=== PATIENT | male | born 1980 | race Caucasian/White ===

== ENCOUNTER 2019-02-10 12:24 | Emergency (ER) | payer OTHER, SELFPAY ==
[2019-02-10 12:37] VITALS: BP 117/79; PULSE 65; RESP 15; TEMP 36.8; O2SAT 96; BMI 31.3
--- NOTE | 2019-02-10 12:51 | DI.RAD.S_ITS ---
PROCEDURE: XR KNEE RT 3V INDICATIONS: knee pain TECHNIQUE: 3 views of the knee were acquired. COMPARISON: None. FINDINGS: Bones: No fractures or dislocations. No suspicious bony lesions. Soft tissues: No joint effusion. No suspicious soft tissue calcifications. IMPRESSION: No acute osseous abnormality of the right knee. Dictated by: Jd Jorge M.D. on 02/10/2019 at 12:47 Approved by: Jd Jorge M.D. on 02/10/2019 at 12:48
--- NOTE | 2019-02-10 12:56 | ED_ITS ---
HPI - Extremity Injury (Lower) <FITZ Reynoso-BC - Last Filed: 02/10/19 14:08> General Chief Complaint: Extremity Injury, Lower Stated Complaint: Right knee pain Time Seen by Provider: 02/10/19 12:42 Source: patient Mode of arrival: ambulatory Limitations: no limitations History of Present Illness HPI Narrative: Patient Is a 38-year-old male nonsmoker with history of hypertension who presents with a chief complaint of right knee pain for the past week. He states he woke up and his right knee hurts when he squats down and feels like yes to veer to the side. Occasionally he feels clicking and popping. Denies any redness or swelling. He denies any previous injury to the knee other than a meniscus repair when he was 16 years old. He denies any overt injury twisting or popping. He is taking the occasional ibuprofen as well as ice for the pain. He has an appointment with his primary care provider and May. Related Data Home Medications Medication Instructions Recorded Confirmed lisinopril-hydrochlorothiazide 1 tab PO DAILY #0 09/15/16 02/10/19 gabapentin 02/10/19 Previous Rx's Medication Instructions Recorded hydroxyzine pamoate [Vistaril] 25 mg PO Q4HP PRN #60 cap 09/25/16 oxycodone 5 mg PO Q4HP PRN #90 tab 09/25/16 Xarelto 15 mg PO BID #42 tab 09/27/16 Allergies Allergy/AdvReac Type Severity Reaction Status Date / Time No Known Drug Allergies Allergy Verified 02/10/19 12:38 Review of Systems <GRACIELA Reynoso - Last Filed: 02/10/19 14:08> Review of Systems GENERAL: Denies chills, fatigue, malaise, fever, sweats. HEENT: Denies sinus pain, ear pain, sore throat, difficulty swallowing, dizziness. RESPIRATORY: Denies dyspnea, cough, wheezing, hemoptysis, sputum. CARDIOVASCULAR: Denies chest pain, palpitations, orthopnea, edema, GASTROINTESTINAL: Denies nausea, vomiting, abdominal pain, diarrhea, constipation, melena. : Denies dysuria, frequency, incontinence, hematuria, urinary retention. MUSCULOSKELETAL: See HPI SKIN: See HPI NEUROLOGIC: Denies weakness, headache, numbness, change in speech, confusion, seizures, incoordination. PSYCHIATRIC: No concerning psychosocial issues. 12 point review of systems is negative except for those stated above PFSH <GRACIELA Reynoso - Last Filed: 02/10/19 14:08> Medical History (Updated 02/10/19 @ 13:59 by GRACIELA Reynoso) Hypertension (Acute) Social History Smoking Status: Never smoker Social History Smoking Status: Never smoker Exam <GRACIELA Reynoso - Last Filed: 02/10/19 14:08> Narrative Exam Narrative: GENERAL: This is a well-nourished, well-developed patient, no acute distress HEAD: Atraumatic. Normocephalic. No temporal or scalp tenderness. EYES: Pupils equal round and reactive. Extraocular motions intact. No scleral icterus. No injection or drainage. ENT: Nose without bleeding, purulent drainage or septal hematoma. Throat without erythema, tonsillar hypertrophy or exudate. Uvula midline. Airway patent. NECK: Trachea midline. No JVD or lymphadenopathy. Supple, nontender, no mening eal signs. CARDIOVASCULAR: Regular rate and rhythm RESPIRATORY: No cough. No increased respiratory effort. Musk: Pain to palpation around right patella. Negative anterior and posterior drawer test right knee. Normal Varus and valgus test . Pain and clicking with John test. Positive pedal pulse right knee. No obvious swelling to knee. BACK: Nontender without deformity or crepitance. No flank tenderness. NEURO: AOx3. SKIN: No rash, erythema, ecchymosis noted right knee. Initial Vital Signs Initial Vital Signs: Vital Signs Temperature 98.2 F 02/10/19 12:37 Pulse Rate 65 02/10/19 12:37 Respiratory Rate 15 02/10/19 12:37 Blood Pressure 117/79 02/10/19 12:37 Pulse Oximetry 96 02/10/19 12:37 <Marifer Argueta DO - Last Filed: 02/13/19 12:54> Initial Vital Signs Initial Vital Signs: Vital Signs Temperature 98.2 F 02/10/19 12:37 Pulse Rate 65 02/10/19 12:37 Respiratory Rate 15 02/10/19 12:37 Blood Pressure 117/79 02/10/19 12:37 Pulse Oximetry 96 02/10/19 12:37 Course <GRACIELA Reynoso - Last Filed: 02/10/19 14:08> Orders Ordered: ED Orders 02/10/19 12:51 XR knee RT 3V Stat Vital Signs - 8 hr 02/10/19 12:37 Temperature 98.2 F Pulse Rate 65 Respiratory Rate 15 Blood Pressure 117/79 Pulse Oximetry 96 <Marifer Argueta DO - Last Filed: 02/13/19 12:54> Orders Ordered: ED Orders 02/10/19 12:51 XR knee RT 3V Stat Vital Signs - 8 hr 02/10/19 12:37 Temperature 98.2 F Pulse Rate 65 Respiratory Rate 15 Blood Pressure 117/79 Pulse Oximetry 96 MDM - Extremity Injury (Lower) <GRACIELA Reynoso - Last Filed: 02/10/19 14:08> Imaging Data knee xray : Radiologist's impression: [address] [address] XRay Report Signed Patient: Luis Rahman OMR#: [id number] : 1980Acct:[id number] Age/Sex: 38 / MDate of Service: 02/10/19 Loc: ED Accession Number: [id number] Procedure: XR knee RT 3V Ordering Provider: Josselyn Rodriguez PROCEDURE: XR KNEE RT 3V INDICATIONS: knee pain TECHNIQUE: 3 views of the knee were acquired. COMPARISON: None. FINDINGS: Bones: No fractures or dislocations. No suspicious bony lesions. Soft tissues: No joint effusion. No suspicious soft tissue calcifications. IMPRESSION: No acute osseous abnormality of the right knee. Dictated by: Jd Jorge M.D. on 02/10/2019 at 12:47 Approved by: Jd Jorge M.D. on 02/10/2019 at 12:48 [facility] Narrative Medical decision making narrative: The patient is a 38-year-old male who presents with a chief complaint right knee pain. He has pain and clicking on John test, making me suspicious an another minute this injury. He has a normal x-ray. He does not have any swelling or erythema indicative of a clot, especially given his instability and pain and clicking on exam. I discussed at length rest ice compression elevation as well as follow up with his primary care provider as he may benefit from further imaging on an outpatient basis for p hysical therapy. Discussed coming back to the emergency department for acute concerns such as chest pain shortness of breath or concern of DVT. Patient has no questions or concerns upon discharge. Discharge Plan Departure Patient Disposition: Home Clinical Impression: Acute knee pain Qualifiers: Laterality: right Qualified Code(s): M25.561 - Pain in right knee Discharge Date/Time: 02/10/19 14:11 Interventions: ED Discharge Assessment Last Done: 02/10/19 14:11 Instructions: How To Perform RICE (Rest, Ice, Compress, Elevate), DI for Knee Pain Activity Restrictions/Additional Instructions: Your x-ray showed no bony abnormality of the knee. Please continue rest ice compression elevation as well as [id number] pain medications as needed and able. Please follow up with primary care provider for new or worsening symptoms as already scheduled. Even though your x-ray was normal, you may benefit from further imaging and/or physical therapy. Please come back to the emergency department for any acute concerns such as shortness of breath or chest pain. Prescriptions: No Action lisinopril-hydrochlorothiazide 10 MG/12.5 MG tablet 1 tab PO DAILY Qty: 0 RF: 0 oxycodone 5 MG tablet 5 mg PO Q4HP PRNQty: 90 RF: 0 hydroxyzine pamoate [Vistaril] 25 MG capsule 25 mg PO Q4HP PRNQty: 60 RF: 1 Xarelto 15 MG tablet 15 mg PO BID Qty: 42 RF: 0 gabapentin 300 mg capsule RF: 0 Referrals: Elio Gray [Primary Care Provider] - <Marifer Argueta DO - Last Filed: 02/13/19 12:54> Cosign ED Attending Narcisa Attestation: I was immediately available in the department for consultation. Documentation has been reviewed. I agree with assessment and plan.
[2019-02-10 14:10] VITALS: BP 128/72; PULSE 64; RESP 14; O2SAT 99
== END 2019-02-10 14:11 | disposition home or self-care (01) ==
PROVIDERS: Emergency Provider Nurse Practitioner Family; PCP Family Medicine
DX: M25.561 Pain in right knee (principal); I10 Essential (primary) hypertension
CPT/HCPCS: 73562; 99282; 99283

== ENCOUNTER → 2019-02-26 18:41 | Outpatient (CLI) | payer OTHER, SELFPAY ==
--- NOTE | 2019-02-26 18:43 | DI.MRI.S_ITS ---
PROCEDURE: MR KNEE RT WO CON INDICATIONS: RIGHT KNEE PAIN TECHNIQUE: Noncontrast sagittal PD fast spin echo and T2 fast spin echo with fat saturation, sagittal 3-D FLASH with fat saturation; coronal T1 spin echo and PD fast spin echo with fat saturation, and axial PD fast spin echo with fat saturation through the knee. COMPARISON: [facility], CR, XR KNEE RT 3V, 02/10/2019, 12:59. FINDINGS: Image quality: Excellent. Menisci: Lateral meniscal tear involving the body, with abnormal signal extending to the superior and inferior articular surface. Medial meniscal tear also involving the body with truncation free margin and mild partial extrusion. Cruciate ligaments: The anterior and posterior cruciate ligaments appear intact. Medial structures: Adjacent soft tissue edema to the MCL may be reactive to medial meniscal pathology described above. No complete rupture. Semimembranosus and pes anserinus tendons appear intact although there is trace fluid adjacent to the pes anserinus tendon suggesting early or developing bursitis. Differential includes low-grade strain/tendinopathy. Lateral structures: The lateral collateral ligament, long and short heads of the biceps femoris tendon appear intact. The popliteus tendon appears normal; the popliteofibular ligament appears intact. The posterosuperior and anteroinferior popliteomeniscal fascicles appear intact. The arcuate and fabellofibular ligaments appear intact, on either side of the lateral inferior geniculate artery. Iliotibial band appears normal. Anterior structures: Mild thickening and internal signal change of the distal quadriceps tendon. There is also proximal patellar tendinopathy. Patellar alignment within normal limits. Hoffa's fat pad grossly unremarkable. Prepatellar and superficial infrapatellar subcutaneous edema/fluid. Bones and cartilage: No focal marrow contusion or discrete low signal fracture line. Within the medial compartment, diffuse partial-thickness loss the femoral and tibial articular cartilage. Within the lateral compartment, low-grade surface fraying of the central weightbearing tibial and femoral articular cartilage. Within the patellofemoral compartment, articular cartilage appears grossly intact Joint space: Small joint effusion. No definite formed Rader's cyst. No intra-articular loose body seen. IMPRESSION: Lateral meniscal tear involving the body. Medial meniscal tear also involving body and demonstrating partial extrusion. Distal quadriceps and proximal patellar tendinopathy. Prepatellar and superficial infrapatellar subcutaneous edema/fluid. Degenerative joint disease as above. Mild fluid or edema adjacent to the pes anserinus tendon suggesting low-grade/developing bursitis versus mild strain or tendinopathy, age unknown. Small joint effusion Dictated by: Jm Chavez M.D. on 03/01/2019 at 9:49 Approved by: Jm Chavez M.D. on 03/01/2019 at 9:57
== END ==
PROVIDERS: PCP Family Medicine; Visit Provider Family Medicine
DX: M25.561 Pain in right knee (principal); S83.281A Other tear of lateral meniscus, current injury, right knee, initial encounter; S83.241A Other tear of medial meniscus, current injury, right knee, initial encounter; M17.11 Unilateral primary osteoarthritis, right knee; M25.461 Effusion, right knee
CPT/HCPCS: 73721

== ENCOUNTER 2020-08-02 08:56 | Emergency (ER) | payer OTHER, SELFPAY ==
[2020-08-02 09:05] VITALS: BP 136/94; PULSE 75; RESP 18; TEMP 36.8; O2SAT 97; BMI 32.1
--- NOTE | 2020-08-02 09:31 | ED_ITS ---
HPI - Headache General Chief Complaint: Headache Stated Complaint: Migraine wont go away, diarrhea Time Seen by Provider: 08/02/20 09:07 Source: patient Mode of arrival: Ambulatory Limitations: no limitations History of Present Illness HPI Narrative: PATIENT IS A 40-year-old male with history of migraine. Presenting today with migraine. He said it started yesterday. Yesterday he says he has bit of a stomach bug he had some diarrhea and nausea no significant vomiting or fluid loss. His headache today however will not go away. He has tried ibuprofen which is what he normally does it is not helping. He has some light sensitivity no noise sensitivity. He has no fever or neck pain. Overall his stomach feels a little crampy but diarrhea has slowed. It is in the same location as his normal headaches. MD Complaint: headache Quality: aching Related Data Home Medications Medication Instructions Recorded Confirmed lisinopril-hydrochlorothiazide 1 tab PO DAILY #0 09/15/16 02/10/19 gabapentin 300 mg PO TID 08/02/20 08/02/20 Allergies Allergy/AdvReac Type Severity Reaction Status Date / Time No Known Drug Allergies Allergy Verified 08/02/20 09:11 Review of Systems Review of Systems Narrative: GENERAL: Denies chills, fatigue, malaise, fever, sweats, travel HEENT: Denies sinus pain, ear pain, sore throat, difficulty swallowing, neck pain RESPIRATORY: Denies dyspnea, cough, wheezing, hemoptysis, sputum. CARDIOVASCULAR: Denies chest pain, palpitations, orthopnea, edema GASTROINTESTINAL: See HPI : Denies dysuria, frequency, incontinence, hematuria, urinary retention, flank pain. MUSCULOSKELETAL: Denies weakness, joint pain, or bony pain SKIN: No rash, no erythema, no pruritus NEUROLOGIC: Headache Denies weakness, dizziness, numbness, change in speech, confusion PSYCHIATRIC: No concerning psychosocial issues. 12 point review of systems is negative except for those stated above and HPI Patient History Medical History Hypertension (Acute) Social History Smoking Status: Never smoker Smoking Status: Never smoker Substance Use Type: does not use Exam Initial Vital Signs Initial Vital Signs: Vital Signs Temperature 98.2 F 08/02/20 09:05 Pulse Rate 75 08/02/20 09:05 Respiratory Rate 18 08/02/20 09:05 Blood Pressure 136/94 H 08/02/20 09:05 Pulse Oximetry 97 08/02/20 09:05 GENERAL: Well-appearing, well-nourished and in no acute distress. HEENT: Head atraumatic,EOMI, pupils reactive, face symmetric, negative Kernig and Brudzinski CARDIOVASCULAR: Regular rate and rhythm without murmurs, rubs or gallops. RESPIRATORY: Breath sounds equal bilaterally, no wheezes rales or rhonchi. ABDOMEN: Soft, nontender. Normoactive bowel sounds all 4 quadrants. No guarding or rebound. EXTREMITIES: Normal range of motion, no clubbing or edema. Neurovascularly intact NEUROLOGICAL: Alert and oriented x4.Normal gait and speech. Cranial nerves II through XII grossly intact. SKIN: Warm, dry, no laceration, no petechiae, no rashes or lesions. Scores NIH Stroke Scale Level of Conciousness: Alert, keenly responsive Ask month/age: Answers both questions correctly. Open/close eyes, close hand: Performs both tasks correctly Best gaze horizontal: Normal Visual emmanuel: No visual loss Facial palsy: Normal symetrical movement Left arm drift: No drift for full 10 sec Right arm drift: No drift for full 10 sec Left leg drift: No drift for full 5 sec Right leg drift: No drift for full 5 sec Limb ataxia: Absent Sensory on face/arms/legs: Normal, no sensory loss Best language: No aphasia, normal Dysarthria: Normal Extinction or inattention: No abnormality Total NIH Stroke scale score: 0 Course Orders Ordered: ED Orders 08/02/20 10:10 Complete Blood Count AUTO DIFF Stat Comprehensive Metabolic Panel Stat Lipase Stat Discontinued Medications Diphenhydramine HCl (Benadryl) 25 mg IV NOW ONE Stop: 08/02/20 09:36 Last Admin: 08/02/20 10:00 Dose: 25 mg Documented by: JOVANY Sodium Chloride (Normal Saline 0.9%) 1,000 mls @ 1,000 mls/hr IV BOLUS ONE Stop: 08/02/20 10:34 Last Infusion: 08/02/20 11:05 Dose: 0 mls/hr Documented by: Admin: 08/02/20 10:00 Dose: 1,000 mls/hr Documented by: JOVANY Ketorolac Tromethamine (Toradol) 30 mg IV NOW ONE Stop: 08/02/20 09:57 Last Admin: 08/02/20 10:01 Dose: 30 mg Documented by: JOVANY Prochlorperazine (Compazine) 10 mg IV NOW ONE Stop: 08/02/20 09:36 Last Admin: 08/02/20 10:01 Dose: 10 mg Documented by: JOVANY Vital Signs Vital signs: Vital Signs - 8 hr 08/02/20 09:05 08/02/20 10:08 08/02/20 10:12 Temperature 98.2 F Pulse Rate 75 69 Respiratory Rate 18 Blood Pressure 136/94 H 130/90 Pulse Oximetry 97 94 08/02/20 10:30 08/02/20 11:00 08/02/20 11:08 Temperature Pulse Rate 60 55 L 57 L Respiratory Rate Blood Pressure 124/76 122/76 Pulse Oximetry 95 95 95 MDM - Headache Lab Data Attestation: I reviewed the patient's lab results. Result diagrams: 08/02/20 10:10 08/02/20 10:10 Labs: Lab Results 08/02/20 08/02/20 Range/Units 10:10 10:10 WBC 4.4 L (4.5-11.0) X10^3/uL RBC 4.95 (4.5-5.9) X10^6/uL Hgb 15.3 (13.5-17.5) g/dL Hct 43.6 (41-53) % MCV 88.2 (80-100) fL MCH 30.9 (26-34) PG MCHC 35.1 (30-36) % RDW 13.3 (11.6-14.8) % Plt Count 208 (150-400) X10^3/uL Neut % (Auto) 58.1 (50-75) % Lymph % (Auto) 32.3 (25-40) % [place] % (Auto) 5.8 (3-14) % Eos % (Auto) 3.0 (2-4) % Baso % (Auto) 0.8 (0-2) % Neut # (Auto) 2500 (0293-8788) /uL Lymph # (Auto) 1400 (9817-2929) /uL [place] # (Auto) 300 (0-900) /uL Eos # (Auto) 100 (0-450) /uL Baso # (Auto) 0 (0-100) /uL Sodium 138 (137-145) mmol/L Potassium 4.2 (3.4-5.1) mmol/L Chloride 102 (98-107) mmol/L Carbon Dioxide 28 (22-32) mmol/L BUN 13 (9-20) mg/dL Creatinine 1.03 (0.66-1.25) mg/dL Estimated GFR > 60.0 (>60) mL/min BUN/Creatinine Ratio 12.6 (6-22) Glucose 110 H (70-100) mg/dL Calcium 9.5 (8.4-10.2) mg/dL Total Bilirubin 0.7 (0.2-1.3) mg/dL AST 35 (17-59) IU/L ALT 59 H (<50) IU/L Alkaline Phosphatase 57 (38-126) U/L Total Protein 7.9 (6.3-8.2) g/dL Albumin 4.6 (3.5-5.0) g/dL Globulin 3.3 (1.7-4.1) g/dL Albumin/Globulin Ratio 1.4 (1.0-2.8) Lipase 77 (23-300) U/L MDM Narrative Medical decision making narrative: The patient overall starting to feel better but blood work is reassuring. This time no need for head CT this is a typical migraine which is improving migraine cocktail. Patient's pain completely improved with migraine cocktail overall feeling better. He is called for a ride home Benadryl has made him sleepy. Discharge Plan Departure Patient Disposition: Home Clinical Impression: Migraine Qualifiers: Migraine type: unspecified Status migrainosus presence: without status migrainosus Intractability: not intractable Qualified Code(s): G43.909 - Migraine, unspecified, not intractable, without status migrainosus Discharge Date/Time: 08/02/20 11:15 Instructions: DI for Migraine Activity Restrictions/Additional Instructions: *You have been diagnosed with migraine headache *What to do: Rest, increase fluid intake *Continue to take medications as directed Do not take ibuprofen until 6:00 p.m. tonight. May take Tylenol 650 mg every 4- 6 hours if needed *Follow up with your primary care provider in 2-3 days *Return to ER if you should have worsening headache fever neck pain weakness numbness or tingling or any new, worsening or concerning symptoms Prescriptions: No Action lisinopril-hydrochlorothiazide 10 MG/12.5 MG tablet 1 tab PO DAILY Qty: 0 RF: 0 gabapentin 300 mg capsule 300 mg PO TID RF: 0 Referrals: Maryann Costa DO [Primary Care Provider] -
[2020-08-02] MEDS: diphenhydrAMINE 50 MG/ML VIAL 25 MG IV (10:00)
[2020-08-02] MEDS: SODIUM CHLORIDE 0.9% 1,000 ML 1000 ML IV (10:00)
[2020-08-02] MEDS: KETOROLAC 60 MG/2 ML VIAL 30 MG IV (10:01)
[2020-08-02] MEDS: PROCHLORPERAZINE 10 MG/2 ML VIAL IV (10:01)
[2020-08-02 10:08] VITALS: PULSE 69; O2SAT 94
[2020-08-02 10:12] VITALS: BP 130/90
[2020-08-02 10:24] LABS: Add Manual Diff / Slide Review NO; Basophils Absolute Auto 0 /uL (0-100); Basophils Percent Auto 0.8 % (0-2); Eosinophils Absolute Auto 100 /uL (0-450); Hematocrit 43.6 % (41-53); Hemoglobin 15.3 g/dL (13.5-17.5); Lymphocytes Absolute Auto 1400 /uL (1100-4500); Lymphocytes Percent Auto 32.3 % (25-40); Mean Corpuscular HGB Conc 35.1 % (30-36); Mean Corpuscular Hemoglobin 30.9 PG (26-34); Mean Corpuscular Volume 88.2 fL (80-100); Monocytes Absolute Auto 300 /uL (0-900); Monocytes Percent Auto 5.8 % (3-14); Neutrophils Absolute Auto 2500 /uL (1500-7000); Neutrophils Percent Auto 58.1 % (50-75); Platelet Count 208 X10^3/uL (150-400); Red Blood Cell Count 4.95 X10^6/uL (4.5-5.9); Red Cell Distribution Width 13.3 % (11.6-14.8); White Blood Cell Count 4.4 X10^3/uL (4.5-11.0)
[2020-08-02 10:30] VITALS: BP 124/76; PULSE 60; O2SAT 95
[2020-08-02 10:34] LABS: Alanine Aminotransferase 59 IU/L (<50); Albumin 4.6 g/dL (3.5-5.0); Albumin Globulin Ratio 1.4 (1.0-2.8); Alkaline Phosphatase 57 U/L (38-126); Aspartate Aminotransferase 35 IU/L (17-59); BUN Creatinine Ratio 12.6 (6-22); Bilirubin Total 0.7 mg/dL (0.2-1.3); Blood Urea Nitrogen 13 mg/dL (9-20); Calcium 9.5 mg/dL (8.4-10.2); Carbon Dioxide 28 mmol/L (22-32); Chloride 102 mmol/L (98-107); Estimated Glomerular Filt Rate > 60.0 mL/min (>60); Globulin 3.3 g/dL (1.7-4.1); Glucose 110 mg/dL (70-100); HEMOLYSIS 16 (0-50); Lipase 77 U/L (23-300); Potassium 4.2 mmol/L (3.4-5.1); Sodium 138 mmol/L (137-145); Total Protein 7.9 g/dL (6.3-8.2)
[2020-08-02 11:00] VITALS: PULSE 55; O2SAT 95
[2020-08-02 11:08] VITALS: BP 122/76; PULSE 57; O2SAT 95
== END 2020-08-02 11:15 | disposition home or self-care (01) ==
PROVIDERS: Emergency Provider Emergency Medicine; PCP Family Medicine
DX: G43.909 Migraine, unspecified, not intractable, without status migrainosus (principal); R19.7 Diarrhea, unspecified; R11.0 Nausea
CPT/HCPCS: 36415; 80053; 83690; 85025; 96361; 96374; 96375; 99284; J0780; J1200; J1885

== ENCOUNTER → 2022-08-26 11:15 | Outpatient (CLI) | payer OTHER, SELFPAY ==
[2022-08-26 12:34] LABS: COVID19 -Nasal RAPID Negative (Negative)
== END ==
PROVIDERS: PCP Student in an Organized Health Care Education/Training Program; Visit Provider Surgery
DX: Z20.822 Contact with and (suspected) exposure to COVID-19 (principal); Z01.812 Encounter for preprocedural laboratory examination
CPT/HCPCS: 87635; C9803

== ENCOUNTER 2022-08-27 12:10 | Day surgery (SDC) | payer OTHER, SELFPAY ==
[2022-08-23 07:44] VITALS: BMI 34.7
[2022-08-27 12:57] VITALS: BP 130/86; PULSE 67; RESP 14; TEMP 36.3; O2SAT 95; BMI 34.7
[2022-08-27] MEDS: LACTATED RINGERS 1,000 ML 42 ML IV (13:30)
--- NOTE | 2022-08-27 13:36 | PM.PREOP ---
Pre-operative Note COVID-19 COVID-19 status: Negative Result date/Date tested (Pos, Neg/Pending): 08/26/22 Interval Note History & Physical reviewed/Exam performed by Physician: Yes Changes to H&P: No ASA Class (for procedural sedation): II
--- NOTE | 2022-08-27 13:57 | SUR.OPER ---
Supine on padded OR bed, head on pillow, arms secured on padded arm boards at <90 degrees abduction, legs uncrossed, safety belt at thigh, tape over blanket over lower legs.
[2022-08-27] MEDS: CEFAZOLIN 2 GM/100 ML PREMIX 100 ML IV (14:15)
[2022-08-27] MEDS: LIDOCAINE 2% W/EPI INJ 20 ML INJ (14:28)
[2022-08-27] MEDS: BUPIVACAINE 0.25% (PF) VIAL 30 ML INJ (14:28)
--- NOTE | 2022-08-27 15:25 | PM.OP.1 ---
Operative Date/Time/Diagnoses Date of procedure: 08/27/22 Time of procedure: 15:32 Pre-op diagnosis: Left inguinal hernia Post-op diagnosis: same Procedure & Clinicians Procedure: Open left inguinal hernia repair with mesh Same procedure as scheduled: Yes Surgeon: Yao Fitzgerald Operative Notes Procedure in detail: Preoperative antibiotic was administered. The patient was brought to the operating room and placed on the table in supine position general anesthesia was induced. The left groin was prepped and draped in the normal fashion and a time-out was performed. Roughly 10 mL of local anesthetic were injected into the skin and subcutaneous adipose tissue over the left groin. An 8 cm incision was made over the left inguinal canal. Dissection was carried down through the subcutaneous adipose tissue. We exposed the external oblique aponeurosis in the direction of the fibers. Additional local was injected deep to the aponeurosis. A 15 blade scalpel was used to devika the external oblique aponeurosis. Metzenbaum scissors were used to carefully open the aponeurosis in the direction of the fibers taking care not to injure the underlying ilioinguinal nerve. We completely exposed the inguinal canal. The cord was dissected free from the inguinal ligament and floor of the inguinal canal and the external oblique aponeurosis was dissected off of the internal oblique taking care not to injure the hypogastric nerve. We encircled the cord with a Lance drain for retraction. There was a large cord lipoma coming through the internal ring. This indicated a sliding hernia. We dissected the fatty cord lipoma off the cord structures and reduced it into the abdomen. Two 3-0 Vicryl sutures were placed laterally to tighten up the internal ring. We placed a polypropylene mesh over the inguinal canal floor. The mesh was secured with multiple interrupted 3-0 Prolene sutures to the pubic tubercle and shelving edge of the inguinal ligament as well as to the conjoint tendon medially. We overlapped the tails to recreate an internal ring and secured the medial tail to the inguinal ligament with additional sutures. We injected some more local into the fatty tissue in the inguinal canal and cord. Finally, we removed the Lance drain and closed the external oblique fascia with a running 3-0 Vicryl suture. Skin was closed with interrupted 3-0 Vicryl dermal sutures and a running 4 Monocryl subcuticular stitch. EBL 5 mL The patient was awakened and brought to recovery room. Post-operative Condition: stable Disposition: PACU
[2022-08-27 15:27] VITALS: BP 119/72; PULSE 69; RESP 12; TEMP 36.2; O2SAT 98
[2022-08-27 15:31] VITALS: BP 115/83; PULSE 65; RESP 16; O2SAT 97
[2022-08-27 15:36] VITALS: BP 126/81; PULSE 76; RESP 17; O2SAT 97
[2022-08-27 15:51] VITALS: BP 112/75; PULSE 70; RESP 12; TEMP 36.2; O2SAT 96
[2022-08-27 15:56] VITALS: BP 117/83; PULSE 53; RESP 17; TEMP 36.2; O2SAT 99
== END 2022-08-27 16:45 | disposition home or self-care (01) ==
PROVIDERS: PCP Student in an Organized Health Care Education/Training Program; Referring Provider Surgery; Visit Provider Surgery
PROC: (CPT 49505; principal; 2022-08-27 13:30)
DX: K40.90 Unilateral inguinal hernia, without obstruction or gangrene, not specified as recurrent (principal); I10 Essential (primary) hypertension; D17.6 Benign lipomatous neoplasm of spermatic cord
CPT/HCPCS: 49505; 82962; J0690; J1100; J1885; J2250; J2405; J2704; J3010

== ENCOUNTER 2022-09-07 08:24 | Emergency (ER) | payer OTHER, SELFPAY ==
[2022-09-07 08:41] VITALS: BP 135/87; PULSE 83; RESP 20; TEMP 35.8; O2SAT 98; BMI 33.2
[2022-09-07] MEDS: KETOROLAC 30 MG/ML VIAL IM (08:49)
--- NOTE | 2022-09-07 10:19 | PC.NURSE ---
pt had hernia surgery last friday (post op 12 days). started having back pain this week, unable to soak in hot tub due to incision. pt has history of spinal fusion and states it feels just like that did post operatively. pain is midline and most tender to palpation on spine. hurts to sit too long or lay down for too long. has used heat but had little relief from this.
--- NOTE | 2022-09-07 10:27 | ED_ITS ---
HPI - Back Pain/Injury General Chief Complaint: Back Pain/Injury Stated Complaint: LOWER BACK PAIN Time Seen by Provider: 09/07/22 10:25 Source: patient Mode of arrival: Ambulatory Limitations: no limitations History of Present Illness HPI Narrative: This is a 42-year-old male with history of spinal stenosis with lumbar surgery 7 years ago, patient had decompressive surgery bilaterally for nerve compression in both legs in the past, patient had a hernia repair on the 27 of July. Patient states for the past 2 or 3 days he had increasing low back pain over the lumbar region particularly the SI joints on both sides. It does not radiate down his legs. He has chronic neuropathy but has not appreciated significant increase. Has not had any bowel or bladder incontinence. He does not appreciate weakness he states being seated for prolonged periods or lying flat for prolonged periods and then trying to move significantly worsened since symptoms. Standing or walking is his main position of comfort. Patient has not had any fevers or chills. No chest pain or shortness of breath, no nausea or vomiting. He denies any urinary incontinence or bladder incontinence, no dysuria, urgency or frequency. She is been having bowel movements without issue. Patient has not had any saddle anesthesia. He takes gabapentin daily, lisinopril/HCTZ and Protonix. Did not take anything for pain at home yesterday or today. He had a dose of Toradol upon arrival which he states has been somewhat helpful. He states his incision appears to be healing well he saw General surgery yesterday and mentioned his symptoms they were not quite as intense as today. He follows with primary care at the [facility]. Related Data Home Medications Medication Instructions Recorded Confirmed lisinopril 10 1 tab PO DAILY ##0 09/15/16 09/06/22 mg-hydrochlorothiazide 12.5 mg tablet gabapentin 300 mg capsule 300 mg PO TID 08/02/20 09/06/22 pantoprazole 40 mg tablet,delayed 40 mg PO DAILY 08/27/22 09/06/22 release Previous Rx's Medication Instructions Recorded hydrocodone 5 mg-acetaminophen 325 1 tab PO Q8H PRN pain #10 tabs 08/27/22 mg tablet diazepam 10 mg tablet (Valium) 10 mg PO TID PRN muscle spasm #10 09/07/22 tabs prednisone 50 mg tablet 50 mg PO DAILY #5 tabs 09/07/22 tramadol 50 mg tablet 50 mg PO Q6H PRN pain #14 tabs 09/07/22 Allergies Allergy/AdvReac Type Severity Reaction Status Date / Time No Known Drug Allergies Allergy Verified 09/07/22 08:44 Review of Systems Review of Systems ROS Unobtainable: All systems reviewed & are unremarkable except as noted in HPI and below Patient History Medical History Back pain Hx pulmonary embolism (~2016) Hypertension Neuropathy Surgical History H/O spinal fusion Hx of knee surgery Social History household members: spouse Smoking Status: Never smoker alcohol intake: never Smoking Status: Never smoker alcohol intake frequency: other Substance Use Type: does not use Exam Narrative Exam Narrative: GENERAL: Alert and oriented x three, male in mild distress. HEENT: Head normocephalic, atraumatic, EOMI, pupils reactive, face symmetric, moist mucous membranes NECK: Supple, full range of motion CARDIOVASCULAR: Regular rate and rhythm without murmurs, rubs or gallops. RESPIRATORY: Breath sounds equal bilaterally, no wheezes rales or rhonchi. ABDOMEN: Soft, nontender. Normoactive bowel sounds all 4 quadrants. No guarding or rebound, rigidity, no mass. Patient's hernia incision appears clean dry and intact and appears to be healing well. No warmth, erythema or skin changes. : No CVA tenderness BACK: No cervical, thoracic or lumbar vertebral point tenderness. Patient has slightly decreased range of motion, patient has increased pain with flexion, extension rotation side bending. Most comfortable being upright.. Patient's gait is normal. Rectal exam is deferred. Muscle strength is 5/5 in lower extremities, DTRs are 2/4 and lower extremities. Dorsalis pedis and tibialis pulses are 2+ and lower extremities. Sensation is decreased bilaterally but equal in lower extremities. EXTREMITIES: Normal range of motion, no clubbing or edema. Neurovascularly intact NEUROLOGICAL: Cranial nerves II through XII grossly intact. Moving all extremities SKIN: Warm, dry, no petechiae, no rashes or lesions of the back. Initial Vital Signs Initial Vital Signs: Vital Signs Temperature 96.5 F L 09/07/22 08:41 Pulse Rate 83 09/07/22 08:41 Respiratory Rate 20 09/07/22 08:41 Blood Pressure 135/87 09/07/22 08:41 Pulse Oximetry 98 09/07/22 08:41 Oxygen Delivery Method 09/07/22 08:41 Course Orders Ordered: Discontinued Medications Diazepam (Diazepam 5 Mg Tablet) 10 mg PO NOW ONE Stop: 09/07/22 10:40 Last Admin: 09/07/22 10:45 Dose: 10 mg Documented By: EDINSON Ketorolac Tromethamine (Ketorolac 30 Mg/Ml Vial) 30 mg IM NOW ONE Stop: 09/07/22 08:46 Last Admin: 09/07/22 08:49 Dose: 30 mg Documented By: ANIBAL Oxycodone/Acetaminophen (Oxycodone/Acetaminophen 5/325 Tablet) 1 tab PO NOW ONE Stop: 09/07/22 10:40 Last Admin: 09/07/22 10:45 Dose: 1 tab Documented By: EDINSON Vital Signs Vital signs: Vital Signs - 8 hr 09/07/22 11:06 Pulse Rate 70 Respiratory Rate 18 Blood Pressure 131/86 Pulse Oximetry 97 Oxygen Delivery Method Room Air MDM - Back Pain/Injury MDM Narrative Medical decision making narrative: 42-year-old male presents with increased low back pain. History of spinal stenosis with surgery about 7 years ago, patient states he has chronic bilateral neuropathy actually from compression of the nerves in his legs and had decompression surgery remotely as well. He does not have any new red flag symptoms today. He had back surgery on the 8th he is had slowly increasing discomfort of last several days particularly with movement. No red flag symptoms and is otherwise well-appearing. Patient did not try anything for pain at home beyond his normal regimen of gabapentin. At this time I do not feel he warrants emergent MRI, x-ray and CT imaging would likely not give much information. Discussed return precautions plan for pain management some muscle relaxation and short course of prednisone and return precautions with plan to follow-up with primary care this week for recheck. Discharge Plan Departure Patient Disposition: Home Clinical Impression: Low back pain Instructions: DI for Low Back Pain Activity Restrictions/Additional Instructions: Please follow-up with your physician this week for recheck unless your symptoms have resolved. Take steroids once daily until gone. You may take muscle relaxer 1 tablet every 8 hours as needed. You may take ibuprofen 800 mg every 8 hours and/or Tylenol up to a 1000 mg every 6 hours as needed for pain. If in adequate you can take 1-2 tablets of tramadol every 6 hours. This medication can make you sleepy do not drive, perform hazardous activities or make any major decisions while taking it. This medication will make you constipated please take a stool softener once to twice daily until stools are soft and regular. Prescription sent to [facility] in [place]. Please return for fevers, rapidly worsening symptoms, new weakness, new or changing loss of sensation, loss of sensation in the groin area, loss of bowel or bladder control, persistent vomiting, inability to walk safely, inability to lift or move her leg or other new or concerning changes. Prescriptions: New prednisone 50 mg tablet 50 mg PO DAILY Qty: 5 0RF tramadol 50 mg tablet 50 mg PO Q6H PRN (Reason: pain) Qty: 14 0RF diazepam [Valium] 10 mg tablet 10 mg PO TID PRN (Reason: muscle spasm) Qty: 10 0RF No Action lisinopril-hydrochlorothiazide 10 MG/12.5 MG tablet 1 tab PO DAILY Qty: 0 gabapentin 300 mg capsule 300 mg PO TID pantoprazole 40 mg tablet,delayed release (DR/EC) 40 mg PO DAILY Label Comments: TAKE ONE TABLET BY MOUTH ONE TIME DAILY hydrocodone-acetaminophen 5-325 mg tablet 1 tab PO Q8H PRN (Reason: pain) Qty: 10 0RF Referrals: Neil Mendoza MD [Primary Care Provider] - Visit Report Forms: Patient Portal/API
[2022-09-07] MEDS: diazePAM 5 MG TABLET 10 MG PO (10:45)
[2022-09-07] MEDS: OXYCODONE/ACETAMINOPHEN 5/325 TABLET 1 TAB PO (10:45)
[2022-09-07 11:06] VITALS: BP 131/86; PULSE 70; RESP 18; O2SAT 97
== END 2022-09-07 11:07 | disposition home or self-care (01) ==
PROVIDERS: Emergency Provider Emergency Medicine; PCP Student in an Organized Health Care Education/Training Program
DX: M54.50 Low back pain, unspecified (principal)
CPT/HCPCS: 96372; 99283; J1885

== ENCOUNTER 2023-05-11 14:51 | Emergency (ER) | payer OTHER, SELFPAY ==
[2023-05-11 14:57] VITALS: BP 116/86; PULSE 86; RESP 18; TEMP 35.9; O2SAT 94; BMI 33.5
--- NOTE | 2023-05-11 15:04 | DI.US.S_ITS ---
PROCEDURE: US SCROTUM INDICATIONS: LEFT TESTICULAR SWELLING/PAIN x 4 DAYS TECHNIQUE: Real-time scanning was performed of the scrotum and testicles, with image documentation. Color and pulse Doppler interrogation was performed of both testicles. COMPARISON: None. FINDINGS: Right: Testicle is normal in size at 3.9 x 2 x 2.8 cm, and homogenous in echotexture. Epididymis is normal in overall size and morphology. There is a small right-sided hydrocele. Overlying scrotal skin is normal in thickness. Left: Testicle is normal in size at 4.5 x 2.8 x 2.9 cm, and homogeneous in echotexture. The left epididymis appears generally thickened. Mildly increased vascularity can be seen. There is a small left-sided hydrocele. Overlying scrotal skin is normal in thickness. Doppler: Color and pulse Doppler demonstrate normal and symmetric arterial flow in both testicles. Negative for varicocele on either side. IMPRESSION: Thickened and hypervascular left epididymis. Epididymitis is suspected. Normal appearing testicles, without masses or abnormal vascularity. Small bilateral hydroceles are seen, right larger than left. Dictated by: Philip Senior M.D. on 05/11/2023 at 14:57 Approved by: Philip Senior M.D. on 05/11/2023 at 14:59
--- NOTE | 2023-05-11 18:08 | ED_ITS ---
HPI - Male Genitourinary General Chief complaint: Urogenital-Male Stated complaint: swollen left testicle Time Seen by Provider: 05/11/23 18:06 Source: patient Mode of arrival: Ambulatory History of Present Illness HPI Narrative: 43M nonsmoker without significant medical history presents with left testicle pain in the absence of injury for the past 4 days. Patient denies any fever or chills nor dysuria, frequency or urgency. He has been for 25 years and is occasionally sexually active in his monogamous relationship and denies anal intercourse. He denies any rectal pain or difficulty with bowel movements. He has no chest pain, shortness of breath Related Data Home Medications Medication Instructions Recorded Confirmed lisinopril 10 1 tab PO DAILY ##0 09/15/16 09/06/22 mg-hydrochlorothiazide 12.5 mg tablet gabapentin 300 mg capsule 300 mg PO TID 08/02/20 09/06/22 pantoprazole 40 mg tablet,delayed 40 mg PO DAILY 08/27/22 09/06/22 release Previous Rx's Medication Instructions Recorded hydrocodone 5 mg-acetaminophen 325 1 tab PO Q8H PRN pain #10 tabs 08/27/22 mg tablet diazepam 10 mg tablet (Valium) 10 mg PO TID PRN muscle spasm #10 09/07/22 tabs prednisone 50 mg tablet 50 mg PO DAILY #5 tabs 09/07/22 tramadol 50 mg tablet 50 mg PO Q6H PRN pain #14 tabs 09/07/22 levofloxacin 500 mg tablet 500 mg PO DAILY 9 days #9 tabs 05/11/23 Allergies Allergy/AdvReac Type Severity Reaction Status Date / Time No Known Drug Allergies Allergy Verified 09/07/22 08:44 Review of Systems Review of Systems Narrative: GENERAL: Denies chills, fatigue, malaise, fever, sweats. HEENT: Denies sinus pain, ear pain, sore throat, difficulty swallowing, dizziness. RESPIRATORY: Denies dyspnea, cough, wheezing, hemoptysis, sputum. CARDIOVASCULAR: Denies chest pain, palpitations, orthopnea, edema, GASTROINTESTINAL: Denies nausea, vomiting, abdominal pain, diarrhea, constipation, melena. : See HPI MUSCULOSKELETAL: denies weakness, joint pain, or bony pain SKIN: Denies rash, skin lesions, or other NEUROLOGIC: Denies weakness, headache, numbness, change in speech, confusion, seizures, incoordination. PSYCHIATRIC: No concerning psychosocial issues. 12 point review of systems is negative except for those stated above Patient History Medical History Back pain Hx pulmonary embolism (~2016) Hypertension Neuropathy Surgical History H/O spinal fusion Hx of knee surgery Social History household members: spouse Smoking Status: Never smoker alcohol intake: never Smoking Status: Never smoker alcohol intake frequency: other Substance Use Type: does not use Exam Narrative Exam Narrative: GENERAL: [43] year old patient appears stated age. Well-developed patient, in mild distress. HEAD: Atraumatic. Normocephalic. EYES: Pupils equal round and reactive. Extraocular motions intact. No scleral icterus. No injection or drainage. ENT: Nose without bleeding, purulent drainage. Throat without erythema, tonsillar hypertrophy or exudate. Airway patent. NECK: Trachea midline. Non tender CARDIOVASCULAR: Regular rate and rhythm without murmurs, gallops, or rubs. RESPIRATORY: Clear to auscultation. Breath sounds equal bilaterally. No wheezes, rales, or rhonchi. GASTROINTESTINAL: Abdomen soft, non-tender, nondistended. : Examined while patient standing, no evidence of inguinal hernia, no obvious swelling or erythema, there is tenderness to palpation on the superior pole of left testicle EXTREMITIES: No edema or joint tenderness. BACK: Nontender without deformity or crepitance. No flank tenderness. NEURO: AOx3. SKIN: No rash or erythema of visible areas Initial Vital Signs Initial Vital Signs: Vital Signs Temperature 96.7 F L 05/11/23 14:57 Pulse Rate 86 05/11/23 14:57 Respiratory Rate 18 05/11/23 14:57 Blood Pressure 116/86 05/11/23 14:57 Pulse Oximetry 94 05/11/23 14:57 Oxygen Delivery Method Room Air 05/11/23 14:57 Course Orders Ordered: ED Orders 05/11/23 15:04 US scrotum Stat Discontinued Medications Hydrocodone Bitart/Acetaminophen (Hydrocodone/Acet 5/325 Prepack) 1 bottle MISC SEEINSTR ONE Stop: 05/11/23 18:33 Levofloxacin (Levofloxacin 250 Mg Tablet) 500 mg PO NOW ONE Stop: 05/11/23 18:32 Vital Signs Vital signs: Vital Signs - 8 hr 05/11/23 14:57 Temperature 96.7 F L Pulse Rate 86 Respiratory Rate 18 Blood Pressure 116/86 Pulse Oximetry 94 Oxygen Delivery Method Room Air MDM - Male Genitourinary Lab Data Labs: Urine Dip Bedside Urine Glucose Negative Bedside Urine Bilirubin - Negative Bedside Urine Ketone - Negative Urine Specific Angelica 1.025 Bedside Urine Occult Blood - Negative Bedside Urine pH 6.0 Bedside Urine Protein - Negative Bedside Urine Urobilinogen - Negative Bedside Urine Nitrite - Negative Bedside Urine Leukocytes - Negative Esterase Imaging Data US Scrotum: Radiologist's Impression: Thickened hypervascular left epididymis, epididymitis suspected, normal appearing testicles without mass or abnormal vascularity MDM Narrative Medical decision making narrative: [43] year old patient presents with left testicle pain in the absence of injury Multiple etiologies for patient's symptoms considered including, but not limited to: [Torsion versus epididymitis versus orchitis versus other] Prior Charts reviewed in our EMR Primary Historian: patient Labs reviewed and interpreted by myself: Urine without signs of infection Imaging reviewed: Testicular ultrasound without evidence of torsion, epididymitis suspected Patient's symptoms improved over duration of stay with above-stated therapies. Findings and discharge diagnosis discussed with patient/family followed by verbalization of understanding Return precautions discussed with patient/family whom verbalize understanding of diagnosis and plan Discharge Plan Departure Patient Disposition: Home Clinical Impression: Epididymitis Instructions: DI for Epididymitis Activity Restrictions/Additional Instructions: *You have been diagnosed with [epididymitis] *What to do: *Please continue to take your regular medications as directed. [x ] New medication prescriptions sent to your pharmacy: [[facility]] [ ] New medication written as a paper prescription [ ] No new medications given *Please follow up with your primary care provider in 2-3 days, call for an appointment. Let them know you were seen in the Emergency Department and that we ask that you be seen in follow up. We will electronically transmit a record of today's note if your PCP is in our system *If you do not have a primary care provider please contact the [facility] Resource line at [phone]. They will ask some questions about your medical history and help get you set up with a doctor in the community. *Return to Emergency Department if you should have any new, worsening or concerning symptoms, such as [fever greater than 101 F, shaking chills, worsening pain, persistent vomiting or other bothersome symptoms] You have been prescribed a short course of narcotic medications. These are potentially dangerous and addictive medications that should be used carefully. While on these medications you cannot drive or operate heavy machinery. Additionally, you cannot sign legal documents or perform any duties such as this. Many people get constipated on narcotic medications so it would be advisable to discuss stool softeners with the pharmacist when you picking supervisor your prescription. Please understand that we cannot provide further refills of narcotics or controlled substances through the ED and your pain management will need to be through your Primary Care Provider Prescriptions: New levofloxacin 500 mg tablet 500 mg PO DAILY 9 Days Qty: 9 0RF No Action lisinopril-hydrochlorothiazide 10 MG/12.5 MG tablet 1 tab PO DAILY Qty: 0 gabapentin 300 mg capsule 300 mg PO TID pantoprazole 40 mg tablet,delayed release (DR/EC) 40 mg PO DAILY Patient Comments: TAKE ONE TABLET BY MOUTH ONE TIME DAILY hydrocodone-acetaminophen 5-325 mg tablet 1 tab PO Q8H PRN (Reason: pain) Qty: 10 0RF prednisone 50 mg tablet 50 mg PO DAILY Qty: 5 0RF tramadol 50 mg tablet 50 mg PO Q6H PRN (Reason: pain) Qty: 14 0RF diazepam [Valium] 10 mg tablet 10 mg PO TID PRN (Reason: muscle spasm) Qty: 10 0RF Referrals: Neil Mendoza MD [Primary Care Provider] - Stand Alone Forms: Patient Portal/API
[2023-05-11] MEDS: HYDROCODONE/ACET 5/325 PREPACK 1 BOTTLE MISC (18:42)
[2023-05-11] MEDS: levoFLOXacin 250 MG TABLET 500 MG PO (18:42)
[2023-05-11 18:48] VITALS: BP 127/90; PULSE 77; RESP 20; O2SAT 95
== END 2023-05-11 18:52 | disposition home or self-care (01) ==
PROVIDERS: Emergency Provider Emergency Medicine; PCP Student in an Organized Health Care Education/Training Program
DX: N45.1 Epididymitis (principal)
CPT/HCPCS: 76870; 81003; 99283